=== PATIENT | male | born 1990 | race Caucasian/White ===

== ENCOUNTER 2018-05-23 10:01 | Emergency (ER) | payer BC ==
[2018-05-23 10:07] VITALS: BP 97/67
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
== END 2018-05-23 11:08 | disposition home or self-care (01) ==
DX: S63.631A Sprain of interphalangeal joint of left index finger, initial encounter (principal); V18.2XXA Unspecified pedal cyclist injured in noncollision transport accident in nontraffic accident, initial encounter
CPT/HCPCS: L3925